=== PATIENT | female | born 1985 | race Caucasian/White ===

== ENCOUNTER 2023-03-18 21:00 | Emergency (ER) | payer MEDICAID, OTHER ==
[2023-03-18 21:22] VITALS: TEMP 98.5
[2023-03-18] MEDS ORDERED: Zofran 4 MG/2 ML VIAL IV ONE (21:24)
[2023-03-18] MEDS ORDERED: Sodium Chloride 0.9% 1000 ML 1,000 ML IV STA (21:24)
[2023-03-18] MEDS ORDERED: Sodium Chloride 0.9% 1000 ML 1,000 ML ONE (21:27)
[2023-03-18] MEDS ORDERED: Zofran 4 MG/2 ML VIAL ONE (21:27)
[2023-03-18 21:44] LABS: Absolute Neutrophil Ct (ANC) 6.82 x10^3/uL (1.4-6.9); BASOPHIL % 0.3 % (0.0-0.4); Basophil (Absolute #) 0.03 x10^3/uL (0-0.4); Eosinophil % 1.8 % (0.00-5.0); Eosinophil (Absolute #) 0.17 x10^3/uL (0-0.5); Hematocrit 35.3 % (35-47); Hemoglobin 11.8 g/dL (12.0-16.0); IMMATURE GRAN # 0.08 x10^3u/L (0.00-0.03); IMMATURE GRAN % 0.9 % (0.00-0.4); Lymphocytes % 13.9 % (24.0-44.0); Mean Cell Volume 88.5 fL (78-100); Mean Corpuscular Hemoglobin 29.6 pg (26-32); Mean Corpuscular Hgb Concent. 33.4 g/dL (32-36); Mean Platelet Volume 9.8 fL (7.5-11.0); Monocyte (Absolute #) 0.94 x10^3/uL (0.0-1.3); Monocytes % 10.1 % (0.0-12.0); Platelet Count 343 x10^3/uL (150-450); Red Blood Count 3.99 x10^6/uL (4.1-5.4); Red Cell Distribution Width 12.9 % (11.5-14.0); White Blood Count 9.3 x10^3/uL (4.0-10.5)
[2023-03-18 21:45] LABS: HCG URINE TEST NEGATIVE (NEGATIVE)
[2023-03-18 21:54] LABS: Creatinine 1 0.71 mg/dL (0.52-1.04); EST GLOMERULAR FILTRATION RATE 112.2 ML/MIN
[2023-03-18 21:55] LABS: ALBUMIN 3.6 g/dL (3.5-5.0); Calcium 9.2 mg/dL (8.4-10.2); Total Protein 7.6 g/dL (6.3-8.2)
[2023-03-18 21:59] LABS: Appearance Clear (Clear); Bacteria Few /HPF (None Seen); Bilirubin Negative (Negative); Blood Negative (Negative); Epithelial Cells Rare /HPF (None Seen); Glucose, Urine Negative (Negative); Hyaline Casts NONE SEEN /LPF (0-2); Ketones 15 (Negative); Leukocyte Esterase Trace (Negative); Nitrite Positive (Negative); Protein,Urine Dip Trace (Negative); RBC 0-2 /HPF (0-5); Specific Gravity <=1.005 (1.005-1.030)
[2023-03-18 22:00] LABS: ADD URINE CULTURE? YES (NO)
[2023-03-18 22:02] LABS: Potassium 2.7 mmol/L (3.5-5.1)
[2023-03-18] MEDS ORDERED: Klor Con PO ONE ×2 (22:08→22:25)
[2023-03-18] MEDS ORDERED: ROCEPHIN 2 Gm-D5w 50ML BAG** 2 G/50 ML IVPB IV STA (22:08)
[2023-03-18 22:17] LABS: INFLUENZA A NEGATIVE (NEGATIVE); INFLUENZA B NEGATIVE (NEGATIVE); RESPIRATORY SYNCTIAL VIRUS NEGATIVE (NEGATIVE); SARS-CoV-2 Xpert Express NEGATIVE (NEGATIVE)
[2023-03-18] MEDS ORDERED: POTASSIUM CHLORIDE 20 mEq IN WATER 100ML 100 ML IV ONE (22:25)
[2023-03-18] MEDS ORDERED: ROCEPHIN 2 Gm-D5w 50ML BAG** 2 G/50 ML IVPB IV ONE (22:25)
[2023-03-18] MEDS: POTASSIUM CHLORIDE 20 mEq IN WATER 100ML 20 MEQ/100 ML BAG IV SCH (23:24)
--- NOTE | 2023-03-18 23:27 | XRAY ---
CLINICAL HISTORY:lower back pain COMPARISON:None TECHNIQUE:CT scan of the abdomen and pelvis was performed without IV contrast. Coronal and sagittal reconstructive images were also obtained. FINDINGS: Sections of lower thorax show no significant abnormality. Abdomen: The liver is of average size. No focal or diffuse parenchymal abnormality. The intrahepatic biliary radicals and the bile ducts are normal. The gallbladder is surgically removed. The spleen, pancreas, and adrenal glands are unremarkable. The kidneys are normal in size and shape. No calculi or hydronephrosis. The transverse colon is redundant. Fecal loaded right hemicolon noted with suspicion of minimal circumferential mural thickening in the cecum and ascending colon. The visualized small bowel loops are unremarkable. The appendix is not visualized, however, no inflammatory changes noted in the right iliac fossa region. There is no evidence of significant enlargement of the mesenteric or retroperitoneal lymph nodes. The abdominal aorta shows mild atherosclerotic changes with few calcified plaques. Pelvis: The urinary bladder is unremarkable. The rectosigmoid colon is unremarkable. The uterus appears unremarkable. No adnexal lesions were noted. vaginal pessary/tampon is noted in situ No evidence of pelvic lymphadenopathy. No definite bony abnormalities could be depicted. IMPRESSION: Fecal loaded right hemicolon with Redundant transverse colon, with suspicion of minimal circumferential mural thickening in the cecum and ascending colon, possibility of stercoral colitis needs to be excluded No other significant abnormality detected in the CT abdomen and pelvis within the limitations of this study. Electronically Signed by: Freda Duffy MD. (03/18/2023 23:22:39 EST)
[2023-03-18] MEDS ORDERED: Sodium Chloride 0.9% 500 ML 500 ML IV ONE (23:30)
[2023-03-18] MEDS ORDERED: Sodium Chloride 0.9% 500 ML 500 ML IV SCH (23:30)
--- NOTE | 2023-03-19 00:49 | ERPHSYRPT ---
- History of Present Illness Time Seen by Provider: 03/18/23 21:06 Historian: patient Exam Limitations: no limitations Patient Subjective Stated Complaint: pt has been sick with fever, n/v since 03/12/23 on 03/16/23 went to [facility] in [place] and swabs were all negative but was told she had UTI and was placed on macrobid and sent home with po phenergan. she states she felt better sunday night and some on sunday but tonight she spiked a temp of 101.7 and has vomited 3 times. Triage Nursing Assessment: pt ambulated into room 7 independently with slow steady gait after standing on scale for weight acquisition. pt is alert and oriented times three, able to move all extremities, able to speak in complete sentences, and with resp even and unlabored. skin is pink, warm, dry, and intact. abdomen is soft nontender to palpation and pt states her bowels are functioning "normal" for her with history of IBS- constipation. reports she has vomited 3 times this evening and each time it has looked like whatever she had eaten/ drank last. denies blood in vomit. reports generalized all over body aches rated 7/10 scale. Physician History: 37-year-old female with a history of hypertension presented in the ER with chief complaint of nausea vomiting with fever chills and low back pain for the last 6 days. Patient was seen at urgent care, was diagnosed with UTI and started on Macrobid. Patient reports continued to have vomiting and lower back pain and low-grade fever. Patient is afebrile and here. Patient reports 3 episodes of nonprojectile, nonbilious vomiting earlier today with no hematemesis. Denies any diarrhea but does have history of constipation. Denies any cough congestion or difficulty breathing. No known sick contact. Reports increased urinary frequency with some dysuria but no hesitancy or urgency. Denies any flank pain. Allergies/Adverse Reactions: nut - unspecified Allergy (Unknown, Verified 03/18/23 21:06) Swelling of Face Home Medications: Amitriptyline HCl 100 mg PO HS 03/18/23 [History] Metoprolol Tartrate 50 mg [Lopressor 50 MG] 50 mg PO BID 03/18/23 [History] Hx Tetanus, Diphtheria Vaccination/Date Given: Yes Hx Influenza Vaccination/Date Given: No Hx Pneumococcal Vaccination/Date Given: No Immunizations Up to Date: Yes Travel Risk - International Travel Have you traveled outside of the country in past 3 weeks: No - Coronavirus Screening Are you exhibiting any of the following symptoms?: Yes Symptoms: Fever, Vomiting/Diarrhea, Headaches/Body Aches/Fatigue Close contact with a COVID-19 positive Pt in past 14-21 Days: No - Vaccine Status Have you recieved a Covid-19 vaccination: No - Review of Systems Constitutional: Fever, Chills, Fatigue, Weakness Eyes: No Symptoms Ears, Nose, & Throat: No Symptoms Respiratory: No Symptoms Cardiac: No Symptoms Abdominal/Gastrointestinal: Nausea, Vomiting, Constipation Genitourinary Symptoms: Dysuria, Frequency Musculoskeletal: Back Pain Skin: No Symptoms Neurological: No Symptoms Psychological: No Symptoms Endocrine: No Symptoms Hematologic/Lymphatic: No Symptoms Immunological/Allergic: No Symptoms - Past Medical History Pertinent Past Medical History: Yes Neurological History: Migraines ENT History: No Pertinent History Cardiac History: Hypertension Respiratory History: No Pertinent History Endocrine Medical History: No Pertinent History Musculoskeletal History: No Pertinent History GI Medical History: Other History: No Pertinent History Psycho-Social History: No Pertinent History Female Reproductive Disorders: No Pertinent History Other Medical History: IBS with contsiptaion, tortuous colon - Past Surgical History Past Surgical History: Yes Neuro Surgical History: No Pertinent History Cardiac: No Pertinent History Respiratory: No Pertinent History Gastrointestinal: Appendectomy, Cholecystectomy Genitourinary: No Pertinent History Musculoskeletal: No Pertinent History Female Surgical History: No Pertinent History - Social History Smoking Status: Current every day smoker How long have you smoked: 14yo Exposure to second hand smoke: No Drug Use: none Patient Lives Alone: No - Female History Hx Last Menstrual Period: 03/16/23 Hx Now: (unkn) - Nursing Vital Signs Nursing Vital Signs: Initial Vital Signs Temperature 98.5 F 03/18/23 21:09 Pulse Rate 102 H 03/18/23 21:09 Respiratory Rate 16 03/18/23 21:09 Blood Pressure 177/97 03/18/23 21:09 O2 Sat by Pulse Oximetry 95 03/18/23 21:09 Pain Scale Pain Intensity 7 - Physical Exam General Appearance: no apparent distress, alert Eye Exam: PERRL/EOMI Ears, Nose, Throat Exam: normal ENT inspection, TMs normal, pharynx normal Neck Exam: normal inspection, non-tender, supple, full range of motion Respiratory Exam: normal breath sounds, lungs clear Cardiovascular Exam: regular rate/rhythm, normal heart sounds Gastrointestinal/Abdomen Exam: soft, normal bowel sounds, No tenderness Back Exam: normal inspection, normal range of motion, No CVA tenderness Extremity Exam: normal inspection, normal range of motion Neurologic Exam: oriented x 3, cooperative, boiler engineer II-XII nml as tested Skin Exam: normal color SpO2 Interpretation: normal SpO2: 96 O2 Delivery: Room Air Ordered Tests: Active Orders 24 hr Category Date Time Status IV Insertion STAT Care 03/18/23 21:24 Active NPO (ED) STAT Care 03/18/23 21:24 Active ABDOMEN AND PELVIS W/0 CONTRAS [CT] Stat Exams 03/18/23 22:07 Completed CBC W DIFF Stat Lab 03/18/23 21:35 Completed CMP Stat Lab 03/18/23 21:35 Completed CULTURE,URINE Stat Lab 03/18/23 21:35 Received HCG QUALITATIVE, URINE Stat Lab 03/18/23 21:35 Completed LIPASE Stat Lab 03/18/23 21:35 Completed MAG [MAGNESIUM] Stat Lab 03/18/23 22:32 Completed UA W/RFX UR CULTURE Stat Lab 03/18/23 21:35 Completed Medication Summary Generic Name Dose Route Start Last Admin Trade Name Freq PRN Reason Stop Dose Admin Potassium Chloride 20 meq in 100 mls @ 50 mls/hr 03/18/23 22:15 03/18/23 23:24 Potassium Chloride 20 Meq In Water 100ml IV 03/19/23 02:14 50 mls/hr Q2H KALEE Administration Sodium Chloride 500 mls @ 100 mls/hr 03/18/23 23:30 03/18/23 23:33 Sodium Chloride 0.9% 500 Ml IV 04/17/23 23:29 100 mls/hr .Q5H KALEE Administration Discontinued Medications Generic Name Dose Route Start Last Admin Trade Name Freq PRN Reason Stop Dose Admin Sodium Chloride 1,000 mls @ 999 mls/hr 03/18/23 21:24 03/18/23 23:05 Sodium Chloride 0.9% 1000 Ml IV 03/18/23 22:24 Infused .Q1H1M STA Infusion Sodium Chloride Confirm 03/18/23 21:27 Sodium Chloride 0.9% 1000 Ml Administered 03/18/23 21:28 Dose 1,000 mls @ ud .ROUTE .STK-MED ONE Ceftriaxone Sodium/Dextrose 2 g in 50 mls @ 100 mls/hr 03/18/23 22:08 03/18/23 23:48 Rocephin 2 Gm-D5w 50ml Bag IV 03/18/23 22:37 Infused STAT STA Infusion Ceftriaxone Sodium/Dextrose Confirm 03/18/23 22:25 Rocephin 2 Gm-D5w 50ml Bag Administered 03/18/23 22:26 Dose 2 g in 50 mls @ ud IV .STK-MED ONE Ondansetron HCl 4 mg 03/18/23 21:24 03/18/23 21:39 Ondansetron Hcl 4 Mg/2 Ml Vial IV 03/18/23 21:25 4 mg STAT ONE Administration Ondansetron HCl Confirm 03/18/23 21:27 Ondansetron Hcl 4 Mg/2 Ml Vial Administered 03/18/23 21:28 Dose 4 mg .ROUTE .STK-MED ONE Potassium Chloride 40 meq 03/18/23 22:08 03/18/23 23:15 Potassium Chloride Tab 10 Meq Tab PO 03/18/23 22:09 40 meq STAT ONE Administration Potassium Chloride Confirm 03/18/23 22:25 Potassium Chloride Tab 10 Meq Tab Administered 03/18/23 22:26 Dose 40 meq PO .STK-MED ONE Lab/Rad Data: Laboratory Result Diagrams 03/18/23 21:35 03/18/23 21:35 Laboratory Results 03/18/23 03/18/23 03/18/23 Range/Units 22:32 21:35 21:35 WBC (4.0-10.5) x10^3/uL RBC (4.1-5.4) x10^6/uL Hgb (12.0-16.0) g/dL Hct (35-47) % MCV (78-100) fL MCH (26-32) pg MCHC (32-36) g/dL RDW (11.5-14.0) % Plt Count (150-450) x10^3/uL MPV (7.5-11.0) fL Gran % (36.0-66.0) % Immature Gran % (Auto) (0.00-0.4) % Nucleat RBC Rel Count (0.00-0.1) % Eos # (Auto) (0-0.5) x10^3/uL Immature Gran # (Auto) (0.00-0.03) x10^3u/L Absolute Lymphs (auto) (1.0-4.6) x10^3/uL Absolute Monos (auto) (0.0-1.3) x10^3/uL Absolute Nucleated RBC (0.00-0.01) x10^3u/L Lymphocytes % (24.0-44.0) % Monocytes % (0.0-12.0) % Eosinophils % (0.00-5.0) % Basophils % (0.0-0.4) % Absolute Granulocytes (1.4-6.9) x10^3/uL Basophils # (0-0.4) x10^3/uL Sodium (137-145) mmol/L Potassium (3.5-5.1) mmol/L Chloride (98-107) mmol/L Carbon Dioxide (22-30) mmol/L Anion Gap (5-15) MEQ/L BUN (7-17) mg/dL Creatinine (0.52-1.04) mg/dL Estimated GFR ML/MIN Glucose (74-106) mg/dL Calcium (8.4-10.2) mg/dL Magnesium 2.2 (1.6-2.3) mg/dL Total Bilirubin (0.2-1.3) mg/dL AST (14-36) U/L ALT (0-35) U/L Alkaline Phosphatase (38-126) U/L Serum Total Protein (6.3-8.2) g/dL Albumin (3.5-5.0) g/dL Lipase (23-300) U/L Urine Color (Yellow) Urine Appearance (Clear) Urine pH (4.6-8.0) Ur Specific [place] (1.005-1.030) Urine Protein (Negative) Urine Glucose (UA) (Negative) mg/dL Urine Ketones (Negative) Urine Blood (Negative) Urine Nitrite (Negative) Urine Bilirubin (Negative) Urine Urobilinogen (0.2) mg/dL Ur Leukocyte Esterase (Negative) U Hyaline Cast (Auto) (0-2) /LPF Urine Microscopic RBC (0-5) /HPF Urine Microscopic WBC (0-5) /HPF Ur Epithelial Cells (None Seen) /HPF Urine Bacteria (None Seen) /HPF Urine Culture Reflexed (NO) Urine HCG, Qual NEGATIVE (NEGATIVE) Influenza Type A Ag NEGATIVE (NEGATIVE) Influenza Type B Ag NEGATIVE (NEGATIVE) RSV (PCR) NEGATIVE (NEGATIVE) SARS-CoV-2 (PCR) NEGATIVE (NEGATIVE) 03/18/23 03/18/23 03/18/23 Range/Units 21:35 21:35 21:35 WBC 9.3 (4.0-10.5) x10^3/uL RBC 3.99 L (4.1-5.4) x10^6/uL Hgb 11.8 L (12.0-16.0) g/dL Hct 35.3 (35-47) % MCV 88.5 (78-100) fL MCH 29.6 (26-32) pg MCHC 33.4 (32-36) g/dL RDW 12.9 (11.5-14.0) % Plt Count 343 (150-450) x10^3/uL MPV 9.8 (7.5-11.0) fL Gran % 73.0 H (36.0-66.0) % Immature Gran % (Auto) 0.9 H (0.00-0.4) % Nucleat RBC Rel Count 0.0 (0.00-0.1) % Eos # (Auto) 0.17 (0-0.5) x10^3/uL Immature Gran # (Auto) 0.08 H (0.00-0.03) x10^3u/L Absolute Lymphs (auto) 1.30 (1.0-4.6) x10^3/uL Absolute Monos (auto) 0.94 (0.0-1.3) x10^3/uL Absolute Nucleated RBC 0.00 (0.00-0.01) x10^3u/L Lymphocytes % 13.9 L (24.0-44.0) % Monocytes % 10.1 (0.0-12.0) % Eosinophils % 1.8 (0.00-5.0) % Basophils % 0.3 (0.0-0.4) % Absolute Granulocytes 6.82 (1.4-6.9) x10^3/uL Basophils # 0.03 (0-0.4) x10^3/uL Sodium 134 L (137-145) mmol/L Potassium 2.7 L* (3.5-5.1) mmol/L Chloride 94 L (98-107) mmol/L Carbon Dioxide 32 H (22-30) mmol/L Anion Gap 11.0 (5-15) MEQ/L BUN 4 L (7-17) mg/dL Creatinine 0.71 (0.52-1.04) mg/dL Estimated GFR 112.2 ML/MIN Glucose 113 H (74-106) mg/dL Calcium 9.2 (8.4-10.2) mg/dL Magnesium (1.6-2.3) mg/dL Total Bilirubin 1.00 (0.2-1.3) mg/dL AST 43 H (14-36) U/L ALT 34 (0-35) U/L Alkaline Phosphatase 137 H (38-126) U/L Serum Total Protein 7.6 (6.3-8.2) g/dL Albumin 3.6 (3.5-5.0) g/dL Lipase 21 L (23-300) U/L Urine Color Dark Yellow A (Yellow) Urine Appearance Clear (Clear) Urine pH 6.0 (4.6-8.0) Ur Specific [place] <=1.005 (1.005-1.030) Urine Protein Trace A (Negative) Urine Glucose (UA) Negative (Negative) mg/dL Urine Ketones 15 A (Negative) Urine Blood Negative (Negative) Urine Nitrite Positive A (Negative) Urine Bilirubin Negative (Negative) Urine Urobilinogen 1.0 A (0.2) mg/dL Ur Leukocyte Esterase Trace A (Negative) U Hyaline Cast (Auto) NONE SEEN (0-2) /LPF Urine Microscopic RBC 0-2 (0-5) /HPF Urine Microscopic WBC 3-5 (0-5) /HPF Ur Epithelial Cells Rare (None Seen) /HPF Urine Bacteria Few A (None Seen) /HPF Urine Culture Reflexed YES (NO) Urine HCG, Qual (NEGATIVE) Influenza Type A Ag (NEGATIVE) Influenza Type B Ag (NEGATIVE) RSV (PCR) (NEGATIVE) SARS-CoV-2 (PCR) (NEGATIVE) - Progress Progress: improved, re-examined Progress Note: 03/19/23 00:47 37 years old is evaluated in the ER for nausea vomiting with fever chills with low back pain and UTI symptoms for the last 6 days. She has outpatient Macrobid with no relief and symptoms are getting worse. Patient was mildly tachycardic on presentation. She is given Zofran and fluid bolus, on reevaluation she is feeling much better. Workup showed normal white count, chemistries showed hypokalemia of 2.7 with a normal magnesium. She is given oral and IV replacement of potassium. Stable renal functions. These does have positive nitrite/UTI. Given a dose of Rocephin. I have obtained CT abdomen pelvis without contrast which showed moderate stool load on the right side with questionable colitis but patient does not have any tenderness. I have recommended observation admission but patient does not want to stay in the hospital at all and wants to go home. I would continue with Levaquin and Flagyl to go home along with Zofran which she has at home and outpatient follow-up recommended. I will give patient few days supply of potassium and have her recheck her potassium in 2 days. Discussed signs symptoms of worsening needing return to ER which she seems understanding. Stable for discharge. Counseled pt/family regarding: lab results, diagnosis, need for follow-up, rad results Medical Desision Making - Independent Historian Additional History obtained from: Spouse - Diagnostic Testing Diagnostic test were ordered, analyzed, and reviewed by me: Yes Radiological Interpretation: Reviewed by me, Teleradiologist Report - Risk of complications The pt has a mod risk of morbidity or mortality based on: Need for prescription drug management - Departure Departure Disposition: Home Clinical Impression: Acute UTI, Colitis, Hypokalemia, Constipation Condition: Stable Critical Care Time: No Referrals: J LUIS LEVY MD [Primary Care Provider] - Follow up with PCP 1 day Instructions: Hypokalemia (DC), Urinary Tract Infection, Adult (DC) Additional Instructions: Take Tylenol/ibuprofen as needed for fever and aches and pain. Drink plenty of fluids to keep yourself well-hydrated. Take Zofran as needed. Take daily MiraLAX and stool softener. Take foods with high potassium. Recheck your potassium in couple of days. Return to ER for intractable vomiting, abdominal pain, fever chills etc. Prescriptions: Metronidazole 500 mg [Flagyl 500 MG] 500 mg PO TID #21 tablet Potassium Bicarbonate [K-Lyte ] 25 meq PO DAILY 5 Days #5 tablet Levofloxacin [Levaquin 500 MG Tablet] 500 mg PO DAILY #7 tablet
[2023-03-19] MEDS: POTASSIUM CHLORIDE 20 mEq IN WATER 100ML 20 MEQ/100 ML BAG IV SCH (01:00)
[2023-03-19 02:20] VITALS: BP 138/101; PULSE 76; RESP 18; O2SAT 98
== END 2023-03-19 01:47 | disposition home or self-care (01) ==
LOC: ED 21:00
DX: N39.0 Urinary tract infection, site not specified (principal); K52.9 Noninfective gastroenteritis and colitis, unspecified; E87.6 Hypokalemia; K59.00 Constipation, unspecified; R11.2 Nausea with vomiting, unspecified; R50.9 Fever, unspecified; M54.50 Low back pain, unspecified; R35.0 Frequency of micturition; I10 Essential (primary) hypertension; Z79.899 Other long term (current) drug therapy; Z28.310 Unvaccinated for COVID-19; Z72.0 Tobacco use
CPT/HCPCS: 0241U; 36000; 36415; 74176; 80053; 81001; 81025; 83690; 83735; 85025; 87086; 93041; 96360; 96361; 96365; 96374; 99284; J0696; J2405; J3480; A9270-GY